=== PATIENT | male | born 1935 | race Hispanic/Latino ===

== ENCOUNTER → 2018-08-06 | Outpatient (CLI) | payer OTHER | END | disposition home or self-care (01) | LOC: OIH 09:49 | PROVIDERS: ATTEND Internal Medicine | DX: I70.0 Atherosclerosis of aorta (principal); I10 Essential (primary) hypertension | CPT/HCPCS: 71046 ==

== ENCOUNTER 2018-10-24 06:54 | Emergency (ER) | payer OTHER, MEDICARE ==
[2018-10-24 07:23] LABS: BASOPHILS % (AUTO) 0.2 % (0.0-5.0); EOSINOPHILS % (AUTO) 0.3 % (0.0-8.0); HEMATOCRIT 46.3 % (42-54); LYMPHOCYTES % (AUTO) 8.9 % (21.0-51.0); MEAN CORPUSCULAR HEMOGLOBIN 31.4 pg (27.0-33.0); MEAN CORPUSCULAR HGB CONC 34.4 g/dL (32.0-36.0); MEAN CORPUSCULAR VOLUME 91.3 fL (79-99); MONOCYTES % (AUTO) 5.1 % (3.0-13.0); NEUTROPHILS % (AUTO) 85.5 % (40.0-77.0); PLATELET COUNT (AUTO) 114 K/uL (130-400); RED BLOOD CELL COUNT(AUTO) 5.07 MIL/uL (4.50-6.20); RED CELL DISTRIBUTION WIDTH 13.5 % (11.0-15.5)
[2018-10-24] MEDS ORDERED: ONDANSETRON HCL 4 MG/2 ML VIAL ONE (07:32)
[2018-10-24 07:35] LABS: CREATININE 1.3 mg/dL (0.5-1.5); POTASSIUM 3.9 mmol/L (3.5-5.1)
[2018-10-24 07:39] LABS: ALBUMIN 3.8 g/dL (3.5-5.0); BILIRUBIN,TOTAL 1.3 mg/dL (0.2-1.0); TOTAL PROTEIN, SERUM 7.5 g/dL (6.0-8.3)
[2018-10-24] MEDS ORDERED: 0.9% SODIUM CHLORIDE 1000 ML IV BAG IV ONE (07:40)
[2018-10-24 08:10] LABS: INR 1.21 (0.85-1.15); PARTIAL THROMBOPLASTIN TIME 29.3 SEC (26.3-35.5); PROTHROMBIN TIME 12.7 SEC (9.6-11.6)
== END 2018-10-24 09:04 | disposition home or self-care (01) ==
LOC: EDH 06:54
DX: A08.4 Viral intestinal infection, unspecified (principal); R79.1 Abnormal coagulation profile; Z79.899 Other long term (current) drug therapy
CPT/HCPCS: 36415; 71045; 80053; 80177; 84484; 85025; 85610; 85730; 93005; 96374; 99284; J2405; J7030

== ENCOUNTER → 2019-10-07 | Outpatient (CLI) | payer OTHER, MEDICARE | END | disposition home or self-care (01) | LOC: OIH 10:13 | PROVIDERS: ATTEND Internal Medicine | DX: I10 Essential (primary) hypertension (principal); M47.814 Spondylosis without myelopathy or radiculopathy, thoracic region; I70.0 Atherosclerosis of aorta | CPT/HCPCS: 71045 ==

== ENCOUNTER 2022-04-28 15:57 | Inpatient (IN) | payer OTHER, MEDICARE ==
[~2022-04-28] VITALS: Ht 167.6 cm; Wt 49.9 kg
[~2022-04-28 15:57] MED LIST: CLON0.5T4 PO; LEVE250T2 PO; METF-444 PO; ROSU40TA21 PO; TAMS-1 PO
[2022-04-28 16:35] LABS: BASOPHILS % (AUTO) 0.2 % (0.0-5.0); HEMATOCRIT 41.9 % (42-54); LYMPHOCYTES % (AUTO) 4.8 % (21.0-51.0); MEAN CORPUSCULAR HGB CONC 31.3 g/dL (32.0-36.0); MEAN CORPUSCULAR VOLUME 99.3 fL (79-99); MONOCYTES % (AUTO) 1.7 % (3.0-13.0); NEUTROPHILS % (AUTO) 92.9 % (40.0-77.0); PLATELET COUNT (AUTO) 144 K/uL (130-400); RED BLOOD CELL COUNT(AUTO) 4.22 MIL/uL (4.50-6.20); RED CELL DISTRIBUTION WIDTH 15.4 % (11.0-15.5); WHITE BLOOD COUNT (AUTO) 13.7 K/uL (4.8-10.8)
[2022-04-28 16:45] LABS: INR 1.17 (0.85-1.15); PROTHROMBIN TIME 12.6 SEC (9.6-11.6)
[2022-04-28] MEDS ORDERED: CEFTRIAXONE 1G VIAL IVP SCH (17:00)
[2022-04-28 17:14] LABS: ALBUMIN 1.8 g/dL (3.5-5.0); CREATININE 2.4 mg/dL (0.5-1.5); POTASSIUM 3.7 mmol/L (3.5-5.1); TOTAL PROTEIN, SERUM 6.6 g/dL (6.0-8.3)
[2022-04-28] MEDS: AZITHROMYCIN 500MG+NS 250ML IVPB SCH (17:15)
[2022-04-28] MEDS ORDERED: 0.9%NACL 1000ML 1,000 ML IV ONE (17:30)
[2022-04-28] MEDS ORDERED: INSULIN HUMULIN R 100 UNIT/ML 3ML IV STA (17:48)
[2022-04-28] MEDS ORDERED: LACTATED RINGERS 1000ML 1,000 ML IV ONE (18:00)
[2022-04-28 18:10] LABS: ABG BASE EXCESS -0.8 mmol/L (-2.0-3.0); ABG HCO3 22.4 mmol/L (21.0-28.0); ABG OXYGEN SATURATION 94.5 % (95.0-99.0); ABG PCO2 33 mmHg (35-48)
[2022-04-28 18:47] LABS: APPEARANCE,URINE CLEAR (CLEAR); BILIRUBIN,URINE NEGATIVE (NEGATIVE); COLOR,URINE YELLOW (YELLOW); GLUCOSE, URINE (UA) >=1000 mg/dL (NEGATIVE); KETONES,URINE NEGATIVE (NEGATIVE); LEUKOCYTE ESTERASE ,URINE NEGATIVE Leu/uL (NEGATIVE); NITRATE,URINE NEGATIVE (NEGATIVE); OCCULT BLOOD,URINE NEGATIVE (NEGATIVE); PROTEIN,URINE 20 mg/dL (NEGATIVE); UROBILINOGEN,URINE 0.2 mg/dL (0.2-1.0)
[2022-04-28 18:48] LABS: BACTERIA,URINE RARE /HPF (None Seen); MUCUS,URINE RARE LPF (None Seen); SQUAMOUS EPITHELIAL CELL,UR RARE /HPF (0-2)
[2022-04-28] MEDS ORDERED: 1/2 NS 1000ML 1,000 ML IV ONE (21:06)
[2022-04-28] MEDS: INSULIN HUMULIN R 100 UNIT/ML 3ML SQ SCH (21:09)
[2022-04-28 23:01] VITALS: BP 90/53
[2022-04-28] MEDS ORDERED: INSLAN SQ (23:10)
[2022-04-28] MEDS ORDERED: ATOR40TA71 PEG (23:10)
[2022-04-28] MEDS ORDERED: TAMS-1 PEG (23:10)
[2022-04-28] MEDS ORDERED: LACT10SO9 PEG (23:10)
[2022-04-28] MEDS ORDERED: CLOP75TA32 PEG (23:10)
[2022-04-28] MEDS ORDERED: INSU200I SQ (23:10)
[2022-04-28] MEDS ORDERED: LEVE500L PEG (23:10)
[2022-04-28] MEDS ORDERED: BACL10TA PEG (23:10)
[2022-04-28] MEDS ORDERED: ACET325C6 PEG (23:10)
[2022-04-28] MEDS ORDERED: METF-444 PEG (23:10)
[2022-04-28 23:16] VITALS: BP 89/55
[2022-04-28] MEDS ORDERED: ZOSYN 3.375GM +NS 50ML IV SCH (23:30)
[2022-04-28] MEDS: 1/2 NS 1000ML 1,000 ML IV SCH (23:30)
[2022-04-28 23:31] VITALS: BP 89/54
[2022-04-28 23:45] LABS: ABG BASE EXCESS 2.3 mmol/L (-2.0-3.0); ABG HCO3 27.1 mmol/L (21.0-28.0); ABG PCO2 43 mmHg (35-48)
[2022-04-28 23:46] VITALS: BP 107/57
[2022-04-28] MEDS: ALBUTEROL 0.083% 2.5 MG/3 ML INH IH SCH (23:47)
[2022-04-28] MEDS: IPRATROPIUM 0.5 MG/2.5 ML INH IH SCH (23:47)
[2022-04-29] VITALS (72 sets, daily range): BP systolic 77–122; BP diastolic 33–62
[2022-04-29 03:42] LABS: HEMATOCRIT 40.1 % (42-54); MEAN CORPUSCULAR HEMOGLOBIN 30.8 pg (27.0-33.0); MEAN CORPUSCULAR HGB CONC 31.2 g/dL (32.0-36.0); MEAN CORPUSCULAR VOLUME 98.8 fL (79-99); PLATELET COUNT (AUTO) 114 K/uL (130-400); RED BLOOD CELL COUNT(AUTO) 4.06 MIL/uL (4.50-6.20); RED CELL DISTRIBUTION WIDTH 15.2 % (11.0-15.5); WHITE BLOOD COUNT (AUTO) 11.8 K/uL (4.8-10.8)
[2022-04-29 03:49] LABS: ALBUMIN 1.7 g/dL (3.5-5.0); CREATININE 1.9 mg/dL (0.5-1.5); POTASSIUM 3.3 mmol/L (3.5-5.1); TOTAL PROTEIN, SERUM 6.3 g/dL (6.0-8.3)
[2022-04-29] MEDS: 1/2 NS 1000ML 1,000 ML IV SCH (04:01)
[2022-04-29 04:17] LABS: BAND NEUTROPHILS % (MANUAL) 30 % (0-2); EOSINOPHILS % (MANUAL) 1 % (1-6); LYMPHOCYTES % (MANUAL) 10 % (22-44); MAN.DIFF COMMENT-IMPRESSION MANUAL DIFFERENTIAL; MONOCYTES % (MANUAL) 1 % (2-9); SEGMENTED NEUTROPHILS % 58 % (40-70)
[2022-04-29 04:18] LABS: PLATELET MORPHOLOGY COMMENT SLIGHTLY DECREASED
[2022-04-29] MEDS ORDERED: POTASSIUM CHLORIDE 10MEQ/100ML 10 MEQ/100 ML ML IV SCH (04:24)
[2022-04-29] MEDS ORDERED: DEXTROSE 50%-WATER 50 ML DISP.SYRIN IV ONE (05:46)
[2022-04-29] MEDS: INSULIN HUMULIN R 100 UNIT/ML 3ML SQ SCH ×4 (06:15→20:21)
[2022-04-29] MEDS: IPRATROPIUM 0.5 MG/2.5 ML INH IH SCH ×4 (06:51→23:39)
[2022-04-29] MEDS: ALBUTEROL 0.083% 2.5 MG/3 ML INH IH SCH ×3 (06:51→18:00)
[2022-04-29 08:25] LABS: CREATININE 1.7 mg/dL (0.5-1.5); POTASSIUM 3.9 mmol/L (3.5-5.1)
[2022-04-29] MEDS ORDERED: LACTATED RINGERS 1000ML 2,000 ML IV ONE (08:41)
[2022-04-29] MEDS ORDERED: ALBUMIN (HUMAN) 5% 500 ML IV ONE (08:42)
[2022-04-29 08:58] LABS: ABG BASE EXCESS 5.4 mmol/L (-2.0-3.0); ABG HCO3 28.8 mmol/L (21.0-28.0); ABG OXYGEN SATURATION 93.5 % (95.0-99.0); ABG PCO2 38 mmHg (35-48)
[2022-04-29] MEDS ORDERED: VANCOMYCIN 1G VIAL IVPB SCH (09:00)
[2022-04-29] MEDS ORDERED: POTASSIUM CHLORIDE 10MEQ/100ML 100 ML IV PRN ×2 (09:00)
[2022-04-29] MEDS ORDERED: VANCOMYCIN PROTOCOL PER PHARMACY IV SCH (09:00)
[2022-04-29] MEDS ORDERED: 0.9% NACL 250ML IV SCH (09:00)
[2022-04-29] MEDS ORDERED: LACTATED RINGERS 1000ML 1,000 ML IV SCH ×4 (09:00→10:00)
[2022-04-29] MEDS ORDERED: KCL 20 MEQ ERTAB PO PRN (09:00)
[2022-04-29] MEDS ORDERED: LIDOCAINE HCL-MPF 1% 2ML VIAL IV PRN ×2 (09:00)
[2022-04-29] MEDS ORDERED: MAGNESIUM 2GM PREMIX 50ML 50 ML IV PRN (09:00)
[2022-04-29] MEDS ORDERED: GLUCAGON 1MG KIT 1 MG ML IM PRN (09:00)
[2022-04-29] MEDS ORDERED: DEXTROSE 50%-WATER 50 ML DISP.SYRIN IV PRN (09:00)
[2022-04-29] MEDS ORDERED: ALBUMIN (HUMAN) 5% 500 ML IV SCH (09:00)
[2022-04-29] MEDS ORDERED: NOREPINEPHRIN 4MG/NS 250ML 250 ML IV PRN (09:00)
[2022-04-29] MEDS ORDERED: VANCOMYCIN 750MG VIAL IVPB SCH (09:30)
[2022-04-29] MEDS ORDERED: 0.9% NACL 250ML 250 ML IV SCH (09:30)
[2022-04-29] MEDS ORDERED: RENAL DOSE IV PRN (10:30)
[2022-04-29] MEDS: POTASSIUM CHLORIDE 10% ELIXIR 20 MEQ/15 ML UDCUP PO PRN ×3 (10:32→16:37)
[2022-04-29] MEDS: PANTOPRAZOLE 40 MG/VIAL IVP SCH (11:58)
[2022-04-29] MEDS: ENOXAPARIN SODIUM 40 MG/0.4 ML SYRINGE SQ SCH (11:59)
[2022-04-29] MEDS ORDERED: IPRATROPIUM 0.5 MG/2.5 ML INH IH SCH (12:00)
[2022-04-29 12:13] LABS: HEMOGLOBIN A1C 9.7 % (4.0-6.0)
[2022-04-29 12:19] LABS: CARBON DIOXIDE 25 mmol/L (21-32); CHOLESTEROL < 50 mg/dL (<200); CREATININE 1.5 mg/dL (0.5-1.5); GLOMERULAR FILTR. RATE CALC 47 mL/min (>60); GLUCOSE,RANDOM 112 mg/dL (70-105); HDL CHOLESTEROL 13 mg/dL (29-71); LDL DIRECT 17 mg/dL (0-99); TRIGLYCERIDES 82 mg/dL (30-200); UREA NITROGEN, BLOOD 72 mg/dL (7-18)
[2022-04-29 12:25] LABS: THYROID STIMULATING HORMONE 0.31 uIU/mL (0.36-3.74)
[2022-04-29 12:46] LABS: CHLORIDE 131 mmol/L (101-111); LIPASE < 50 U/L (114-286); SODIUM SERUM 165 mmol/L (136-145)
[2022-04-29 12:58] LABS: CRP QUANTITATIVE 198.5 mg/L (0.00-9.0)
[2022-04-29 14:42] LABS: INR 1.66 (0.85-1.15); PROTHROMBIN TIME 17.6 SEC (9.6-11.6)
[2022-04-29 14:43] LABS: PARTIAL THROMBOPLASTIN TIME 36.6 SEC (26.3-35.5)
[2022-04-29] MEDS ORDERED: PHENYLEPHRINE HCL 50 MG in 0.9% NACL 250ML 245 ML IV PRN (15:30)
[2022-04-29] MEDS ORDERED: PHENYLEPHRINE HCL 10 MG in 0.9% NACL 250ML 250 ML IV PRN (16:00)
[2022-04-29] MEDS: BALSAM PERU/CASTOR OIL 60 GM TUBE TP SCH ×2 (16:11→20:28)
[2022-04-29] MEDS: AZITHROMYCIN 500MG+NS 250ML IVPB SCH (16:37)
[2022-04-29 17:54] LABS: CREATININE 1.4 mg/dL (0.5-1.5); POTASSIUM 4.7 mmol/L (3.5-5.1)
[2022-04-29] MEDS: ZOSYN 3.375GM +NS 50ML IV SCH (20:28)
[2022-04-30] VITALS (25 sets, daily range): BP systolic 93–130; BP diastolic 49–63
[2022-04-30 00:41] LABS: CREATININE 1.2 mg/dL (0.5-1.5)
[2022-04-30 03:44] LABS: BASOPHILS % (AUTO) 0.2 % (0.0-5.0); EOSINOPHILS % (AUTO) 0.2 % (0.0-8.0); HEMATOCRIT 29.8 % (42-54); LYMPHOCYTES % (AUTO) 6.9 % (21.0-51.0); MEAN CORPUSCULAR HEMOGLOBIN 31.1 pg (27.0-33.0); MEAN CORPUSCULAR HGB CONC 31.9 g/dL (32.0-36.0); MEAN CORPUSCULAR VOLUME 97.7 fL (79-99); MONOCYTES % (AUTO) 1.4 % (3.0-13.0); NEUTROPHILS % (AUTO) 90.8 % (40.0-77.0); RED BLOOD CELL COUNT(AUTO) 3.05 MIL/uL (4.50-6.20); RED CELL DISTRIBUTION WIDTH 15.1 % (11.0-15.5); WHITE BLOOD COUNT (AUTO) 6.6 K/uL (4.8-10.8)
[2022-04-30 04:21] LABS: % IRON SATURATION 10.8 % (30-44)
[2022-04-30 04:22] LABS: ALBUMIN 1.7 g/dL (3.5-5.0); CREATININE 1.2 mg/dL (0.5-1.5); MAGNESIUM 2.6 mg/dL (1.80-2.40); PHOSPHORUS 3.2 mg/dL (2.5-4.9); POTASSIUM 3.7 mmol/L (3.5-5.1); TOTAL PROTEIN, SERUM 5.4 g/dL (6.0-8.3)
[2022-04-30 05:09] LABS: PLATELET COUNT (AUTO) 73 K/uL (130-400)
[2022-04-30] MEDS: POTASSIUM CHLORIDE 10% ELIXIR 20 MEQ/15 ML UDCUP PO PRN ×3 (05:09→18:14)
[2022-04-30 05:19] LABS: RETICULOCYTE % (AUTO) 0.77 % (0.42-2.23)
[2022-04-30] MEDS: ALBUTEROL 0.083% 2.5 MG/3 ML INH IH SCH ×4 (06:00→18:00)
[2022-04-30 06:08] LABS: CREATININE 1.2 mg/dL (0.5-1.5)
[2022-04-30] MEDS: IPRATROPIUM 0.5 MG/2.5 ML INH IH SCH ×4 (06:25→23:48)
[2022-04-30] MEDS: INSULIN HUMULIN R 100 UNIT/ML 3ML SQ SCH ×4 (06:58→21:00)
[2022-04-30 07:20] LABS: ABG BASE EXCESS 5.2 mmol/L (-2.0-3.0); ABG HCO3 28.2 mmol/L (21.0-28.0); ABG OXYGEN SATURATION 87.5 % (95.0-99.0); ABG PCO2 36 mmHg (35-48)
[2022-04-30] MEDS: BALSAM PERU/CASTOR OIL 60 GM TUBE TP SCH ×3 (08:35→21:00)
[2022-04-30] MEDS: ZOSYN 3.375GM +NS 50ML IV SCH ×2 (08:35→22:56)
[2022-04-30] MEDS: PANTOPRAZOLE 40 MG/VIAL IVP SCH (08:35)
[2022-04-30] MEDS: ENOXAPARIN SODIUM 40 MG/0.4 ML SYRINGE SQ SCH (08:36)
[2022-04-30] MEDS ORDERED: VANCOMYCIN 500MG+NS 100ML 100 ML IV SCH (09:00)
[2022-04-30] MEDS ORDERED: MIDODRINE HCL 5 MG TABLET PO PRN (09:00)
[2022-04-30] MEDS: Vitamin B Complex/Vit C/Folic Acid PO SCH (09:14)
[2022-04-30] MEDS ORDERED: DEXTROSE 5%-WATER 1,000 ML IV ONE (09:50)
[2022-04-30] MEDS: DEXTROSE 5%-WATER 1,000 ML IV SCH ×2 (10:36→23:02)
[2022-04-30 12:08] LABS: CREATININE 1.1 mg/dL (0.5-1.5); POTASSIUM 3.6 mmol/L (3.5-5.1)
[2022-04-30] MEDS: AZITHROMYCIN 500MG+NS 250ML IVPB SCH (15:50)
[2022-04-30 18:19] LABS: CREATININE 1.2 mg/dL (0.5-1.5); POTASSIUM 3.9 mmol/L (3.5-5.1)
[2022-05-01 04:01] VITALS: BP 119/57
[2022-05-01] MEDS: DEXTROSE 5%-WATER 1,000 ML IV SCH (05:00)
[2022-05-01 05:23] LABS: EOSINOPHILS % (AUTO) 0.1 % (0.0-8.0); HEMATOCRIT 30.5 % (42-54); LYMPHOCYTES % (AUTO) 5.9 % (21.0-51.0); MEAN CORPUSCULAR HEMOGLOBIN 30.7 pg (27.0-33.0); MEAN CORPUSCULAR HGB CONC 32.5 g/dL (32.0-36.0); MEAN CORPUSCULAR VOLUME 94.4 fL (79-99); MONOCYTES % (AUTO) 2.2 % (3.0-13.0); NEUTROPHILS % (AUTO) 90.3 % (40.0-77.0); PLATELET COUNT (AUTO) 77 K/uL (130-400); RED BLOOD CELL COUNT(AUTO) 3.23 MIL/uL (4.50-6.20); RED CELL DISTRIBUTION WIDTH 14.8 % (11.0-15.5); WHITE BLOOD COUNT (AUTO) 7.4 K/uL (4.8-10.8)
[2022-05-01 05:39] LABS: ALBUMIN 1.5 g/dL (3.5-5.0); MAGNESIUM 2.2 mg/dL (1.80-2.40); PHOSPHORUS 2.6 mg/dL (2.5-4.9); POTASSIUM 3.3 mmol/L (3.5-5.1); TOTAL PROTEIN, SERUM 5.5 g/dL (6.0-8.3)
[2022-05-01] MEDS: INSULIN HUMULIN R 100 UNIT/ML 3ML SQ SCH ×4 (06:56→21:17)
[2022-05-01] MEDS: IPRATROPIUM 0.5 MG/2.5 ML INH IH SCH ×4 (07:00→23:25)
[2022-05-01] MEDS: ALBUTEROL 0.083% 2.5 MG/3 ML INH IH SCH ×4 (07:00→23:25)
[2022-05-01 07:12] LABS: ABG BASE EXCESS 2.6 mmol/L (-2.0-3.0); ABG HCO3 25.6 mmol/L (21.0-28.0); ABG OXYGEN SATURATION 91.9 % (95.0-99.0); ABG PCO2 35 mmHg (35-48)
[2022-05-01] MEDS: INSULIN GLARGINE 100 UNITS/ML 10 ML VIAL SQ SCH ×2 (07:30→21:15)
[2022-05-01 08:00] VITALS: BP 94/56
[2022-05-01] MEDS: BALSAM PERU/CASTOR OIL 60 GM TUBE TP SCH ×3 (09:00→21:00)
[2022-05-01 11:53] VITALS: BP 94/51
[2022-05-01] MEDS: ZOSYN 3.375GM +NS 50ML IV SCH ×2 (12:10→21:14)
[2022-05-01] MEDS: PANTOPRAZOLE 40 MG/VIAL IVP SCH (12:11)
[2022-05-01] MEDS: Vitamin B Complex/Vit C/Folic Acid PO SCH (12:11)
[2022-05-01] MEDS: ENOXAPARIN SODIUM 40 MG/0.4 ML SYRINGE SQ SCH (12:12)
[2022-05-01] MEDS: POTASSIUM CHLORIDE 10% ELIXIR 20 MEQ/15 ML UDCUP PO PRN (12:18)
[2022-05-01] MEDS ORDERED: DIATR MEGLU/DIATRIZOATE SODIUM 30 ML BOTTLE ONE (13:37)
[2022-05-01 15:48] VITALS: BP 87/52
[2022-05-01] MEDS ORDERED: 0.9% NACL 250ML 250 ML ONE (17:00)
[2022-05-01] MEDS: AZITHROMYCIN 500MG+NS 250ML IVPB SCH (17:13)
[2022-05-01 20:28] VITALS: BP 104/55
[2022-05-01 23:34] VITALS: BP 101/57
[2022-05-02 04:05] VITALS: BP 113/61
[2022-05-02 05:49] LABS: BASOPHILS % (AUTO) 0.1 % (0.0-5.0); HEMATOCRIT 30.5 % (42-54); LYMPHOCYTES % (AUTO) 4.3 % (21.0-51.0); MEAN CORPUSCULAR HEMOGLOBIN 31.1 pg (27.0-33.0); MEAN CORPUSCULAR HGB CONC 32.1 g/dL (32.0-36.0); MEAN CORPUSCULAR VOLUME 96.8 fL (79-99); MONOCYTES % (AUTO) 1.5 % (3.0-13.0); NEUTROPHILS % (AUTO) 93.1 % (40.0-77.0); NUCLEATED RED BLOOD CELLS 0.3 % (0.0-0.19); PLATELET COUNT (AUTO) 96 K/uL (130-400); RED BLOOD CELL COUNT(AUTO) 3.15 MIL/uL (4.50-6.20); RED CELL DISTRIBUTION WIDTH 15.2 % (11.0-15.5); WHITE BLOOD COUNT (AUTO) 11.3 K/uL (4.8-10.8)
[2022-05-02] MEDS: ALBUTEROL 0.083% 2.5 MG/3 ML INH IH SCH ×3 (06:00→18:00)
[2022-05-02 06:05] LABS: ALBUMIN 1.4 g/dL (3.5-5.0); MAGNESIUM 2.3 mg/dL (1.80-2.40); PHOSPHORUS 3.1 mg/dL (2.5-4.9); POTASSIUM 3.5 mmol/L (3.5-5.1); TOTAL PROTEIN, SERUM 5.6 g/dL (6.0-8.3)
[2022-05-02] MEDS: IPRATROPIUM 0.5 MG/2.5 ML INH IH SCH ×4 (06:45→23:29)
[2022-05-02 07:10] VITALS: BP 121/71
[2022-05-02] MEDS ORDERED: VANCOMYCIN 750MG VIAL IVPB SCH (09:00)
[2022-05-02] MEDS: BALSAM PERU/CASTOR OIL 60 GM TUBE TP SCH (09:00)
[2022-05-02] MEDS: INSULIN GLARGINE 100 UNITS/ML 10 ML VIAL SQ SCH (09:03)
[2022-05-02] MEDS: ZOSYN 3.375GM +NS 50ML IV SCH (09:34)
[2022-05-02] MEDS: Vitamin B Complex/Vit C/Folic Acid PO SCH (09:34)
[2022-05-02] MEDS: PANTOPRAZOLE 40 MG/VIAL IVP SCH (09:34)
[2022-05-02] MEDS: ENOXAPARIN SODIUM 40 MG/0.4 ML SYRINGE SQ SCH (09:36)
[2022-05-02] MEDS: INSULIN HUMULIN R 100 UNIT/ML 3ML SQ SCH ×4 (09:48→21:00)
[2022-05-02 11:20] VITALS: BP 119/61
[2022-05-02 15:20] VITALS: BP 111/60
[2022-05-02] MEDS: AZITHROMYCIN 500MG+NS 250ML IVPB SCH (16:11)
[2022-05-02 20:00] VITALS: BP 124/63
[2022-05-03] VITALS: BP 123/69
[2022-05-03 04:00] VITALS: BP 120/70
[2022-05-03] MEDS: BALSAM PERU/CASTOR OIL 60 GM TUBE TP SCH ×3 (04:29→14:27)
[2022-05-03] MEDS: INSULIN GLARGINE 100 UNITS/ML 10 ML VIAL SQ SCH ×2 (04:29→05:43)
[2022-05-03] MEDS: INSULIN HUMULIN R 100 UNIT/ML 3ML SQ SCH ×2 (05:41→11:12)
[2022-05-03] MEDS: ALBUTEROL 0.083% 2.5 MG/3 ML INH IH SCH ×2 (06:00→11:01)
[2022-05-03] MEDS: IPRATROPIUM 0.5 MG/2.5 ML INH IH SCH ×2 (06:00→10:59)
[2022-05-03 08:00] VITALS: BP 128/74
[2022-05-03] MEDS: MORPHINE 2 MG SYG IVP SCH ×2 (09:16→12:20)
[2022-05-03] MEDS: ENOXAPARIN SODIUM 40 MG/0.4 ML SYRINGE SQ SCH (09:18)
[2022-05-03] MEDS: Vitamin B Complex/Vit C/Folic Acid PO SCH (09:19)
[2022-05-03] MEDS: PANTOPRAZOLE 40 MG/VIAL IVP SCH (09:19)
== END 2022-05-03 14:03 | disposition hospice, inpatient (51) | DRG 871 ==
LOC: EDH 15:57 → EDHIP 17:44 → 2BH 21:56 → 3CH 04-30 18:35
PROVIDERS: ADMIT Internal Medicine; ATTEND Internal Medicine
DX: A41.9 Sepsis, unspecified organism (principal); E43 Unspecified severe protein-calorie malnutrition; G93.41 Metabolic encephalopathy; J96.01 Acute respiratory failure with hypoxia; J69.0 Pneumonitis due to inhalation of food and vomit; R57.1 Hypovolemic shock; I21.A1 Myocardial infarction type 2; N17.9 Acute kidney failure, unspecified; Z68.1 Body mass index [BMI] 19.9 or less, adult; E87.0 Hyperosmolality and hypernatremia; M62.82 Rhabdomyolysis; E87.1 Hypo-osmolality and hyponatremia; K94.23 Gastrostomy malfunction; I69.354 Hemiplegia and hemiparesis following cerebral infarction affecting left non-dominant side; E87.20 Acidosis, unspecified; I12.9 Hypertensive chronic kidney disease with stage 1 through stage 4 chronic kidney disease, or unspecified chronic kidney disease; L89.152 Pressure ulcer of sacral region, stage 2; R65.20 Severe sepsis without septic shock; N18.9 Chronic kidney disease, unspecified; E11.65 Type 2 diabetes mellitus with hyperglycemia; E83.52 Hypercalcemia; E87.6 Hypokalemia; D64.9 Anemia, unspecified; G80.9 Cerebral palsy, unspecified; F03.90 Unspecified dementia, unspecified severity, without behavioral disturbance, psychotic disturbance, mood disturbance, and anxiety; E86.0 Dehydration; H91.3 Deaf nonspeaking, not elsewhere classified; R13.12 Dysphagia, oropharyngeal phase; R63.30 Feeding difficulties, unspecified; E11.22 Type 2 diabetes mellitus with diabetic chronic kidney disease; E78.5 Hyperlipidemia, unspecified; Z20.822 Contact with and (suspected) exposure to COVID-19; Z74.01 Bed confinement status
CPT/HCPCS: 36415; 36600; 71045; 74018; 80048; 80053; 80061; 80202; 81001; 82010; 82140; 82435; 82533; 82550; 82607; 82728; 82803; 82947; 82948; 83036; 83605; 83690; 83735; 84100; 84132; 84145; 84295; 84443; 84484; 85018; 85025; 85610; 85730; 86140; 87040; 87088; 87635; 87804; 93005; 93306; 94640; 94664; 94668; 99291; C9113; G0378; J0456; J0696; J1650; J1815; J2543; J3370; J3475; J7050; J7070; J7120; P9045; Q9963